=== PATIENT | male | born 1955 | race Caucasian/White ===

== ENCOUNTER 2018-06-08 14:49 | Emergency (ER) | payer MEDICARE, MEDICAID ==
[2018-06-08 16:00] LABS: BASO % 0.3 % (0.0-1.0); EOS # 0.1 10^3/uL (0.0-0.50); EOS % 0.7 % (0.0-3.0); HEMATOCRIT 43.7 % (42.0-52.0); HEMOGLOBIN 14.2 g/dl (13.5-17.5); IMMATURE GRANULOCYTE % 0.5 % (0-3.0); LYMPH # 3.4 10^3/uL (1.5-4.5); MEAN CORPUSCULAR HEMOGLOBIN 29.4 pg (27.0-33.0); MEAN CORPUSCULAR HGB CONC 32.5 g/dl (32.0-36.5); MEAN CORPUSCULAR VOLUME 90.5 fl (80.0-96.0); MONO # 0.9 10^3/uL (0.0-0.8); MONO % 7.1 % (0.0-5.0); NEUTROPHILS # 8.5 10^3/uL (1.8-7.7); NEUTROPHILS % 65.4 % (36.0-66.0); PLATELET COUNT, AUTOMATED 401 10^3/uL (150-450); RED BLOOD COUNT 4.83 10^6/uL (4.30-6.10); RED CELL DISTRIBUTION WIDTH 12.6 % (11.5-14.5); WHITE BLOOD COUNT 13.1 10^3/uL (4.0-10.0)
[2018-06-08] MEDS: NS 1,000 ML IV (16:00)
[2018-06-08 16:08] LABS: INR 0.97
[2018-06-08 16:09] LABS: PARTIAL THROMBOPLASTIN TIME 30.5 SECONDS (25.4-37.6)
[2018-06-08 16:13] LABS: ALBUMIN/GLOBULIN RATIO 1.33 (1.00-1.93); ALKALINE PHOSPHATASE 90 U/L (45-117); ALT/SGPT 29 U/L (12-78); AMYLASE 92 U/L (25-115); ANION GAP 6 MEQ/L (8-16); AST/SGOT 16 U/L (7-37); BILIRUBIN,DIRECT < 0.1 MG/DL (0.0-0.2); BILIRUBIN,TOTAL 0.4 MG/DL (0.2-1.0); BLOOD UREA NITROGEN 17 MG/DL (7-18); CALCIUM LEVEL 9.1 MG/DL (8.8-10.2); CARBON DIOXIDE LEVEL 27 MEQ/L (21-32); CHLORIDE LEVEL 103 MEQ/L (98-107); CREATININE FOR GFR 0.99 MG/DL (0.70-1.30); GLOMERULAR FILTRATION RATE > 60.0 (>49); GLUCOSE, FASTING 103 MG/DL (70-100); LIPASE 123 U/L (73-393); POTASSIUM SERUM 4.5 MEQ/L (3.5-5.1); SODIUM LEVEL 136 MEQ/L (136-145)
[2018-06-08] MEDS ORDERED: ISOVUE-370 76% 100ML VIAL (Q9967) As Ordered (16:19)
== END 2018-06-08 18:23 | disposition home or self-care (01) ==
LOC: M ED 14:49
DX: K92.1 Melena (principal); K57.30 Diverticulosis of large intestine without perforation or abscess without bleeding; N40.0 Benign prostatic hyperplasia without lower urinary tract symptoms; Z98.890 Other specified postprocedural states; K21.9 Gastro-esophageal reflux disease without esophagitis; Z72.0 Tobacco use; Z79.899 Other long term (current) drug therapy
CPT/HCPCS: Q9967

== ENCOUNTER 2018-07-29 06:43 | Day surgery (SDC) | payer MEDICARE ==
[~2018-07-29] VITALS: Ht 193 cm; Wt 109.8 kg
[~2018-07-29 06:43] MED LIST: ADVI200T PO; FISH7.5C PO; HYDR1CRE TOP; MULT1TAB8 PO; PERCOCET PO; VITA200T4 PO
[2018-07-29] MEDS ORDERED: NS 1,000 ML IV SCH (07:00)
[2018-07-29] MEDS ORDERED: PROPOFOL 200 MG/20 ML VIAL As Ordered ONE ×2 (07:13→07:46)
--- NOTE | 2018-07-29 08:06 | ROOR ---
Patient Name: Bentley Lu Procedure Date: 07/29/2018 7:23 AM Date of : 1955 Age: 62 Room: [facility] Gender: Male Note Status: Finalized Procedure: Colonoscopy Indications: Rectal bleeding Providers: Carson Darnell MD Referring MD: JOSEFINA SANTAMARIA JR, MD Requesting Provider: Medicines: Monitored Anesthesia Care Complications: No immediate complications. Procedure: Pre-Anesthesia Assessment: - Prior to the procedure, a History and Physical was performed, and patient medications and allergies were reviewed. The patient is competent. The risks and benefits of the procedure and the sedation options and risks were discussed with the patient. All questions were answered and informed consent was obtained. Patient identification and proposed procedure were verified by the physician, the nurse and the sole inker in the endoscopy suite. Mental Status Examination: alert and oriented. Airway Examination: normal oropharyngeal airway and neck mobility. Respiratory Examination: clear to auscultation. CV Examination: normal. Prophylactic Antibiotics: The patient does not require prophylactic antibiotics. Prior Anticoagulants: The patient has taken no previous anticoagulant or antiplatelet agents. ASA Grade Assessment: II - A patient with mild systemic disease. After reviewing the risks and benefits, the patient was deemed in satisfactory condition to undergo the procedure. The anesthesia plan was to use monitored anesthesia care (MAC). Immediately prior to administration of medications, the patient was re-assessed for adequacy to receive sedatives. The heart rate, respiratory rate, oxygen saturations, blood pressure, adequacy of pulmonary ventilation, and response to care were monitored throughout the procedure. The physical status of the patient was re-assessed after the procedure. The Colonoscope was introduced through the anus and advanced to the cecum, identified by appendiceal orifice and ileocecal valve. The colonoscopy was performed without difficulty. The patient tolerated the procedure well. The quality of the bowel preparation was good. Findings: The perianal and digital rectal examinations were normal. Multiple medium-mouthed diverticula were found in the sigmoid colon, descending colon and transverse colon. There was no evidence of diverticular bleeding. A diminutive polyp was found in the cecum. The polyp was flat. The polyp was removed with a cold snare. Resection and retrieval were complete. Estimated blood loss was minimal. The retroflexed view of the distal rectum and anal verge was normal and showed no anal or rectal abnormalities. Impression: - Mild diverticulosis in the sigmoid colon, in the descending colon and in the transverse colon. There was no evidence of diverticular bleeding. - One diminutive polyp in the cecum, removed with a cold snare. Resected and retrieved. - The distal rectum and anal verge are normal on retroflexion view. Recommendation: - Discharge patient to home (ambulatory). - High fiber diet. - Continue present medications. - Telephone my office for pathology results in 2 weeks. - Repeat colonoscopy in 10 years for screening purposes. Carson Darnell MD Carson Darnell MD 07/29/2018 8:05:58 AM This report has been signed electronically. Number of Addenda: 0 Note Initiated On: 07/29/2018 7:23 AM Estimated Blood Loss: Estimated blood loss was minimal.
[2018-07-29 08:20] VITALS: BP 150/90
== END 2018-07-29 08:31 | disposition home or self-care (01) ==
LOC: M OPP 06:43
PROVIDERS: ATTEND Surgery
DX: K57.30 Diverticulosis of large intestine without perforation or abscess without bleeding (principal); K63.5 Polyp of colon; J44.9 Chronic obstructive pulmonary disease, unspecified; M12.9 Arthropathy, unspecified; I10 Essential (primary) hypertension; G47.30 Sleep apnea, unspecified; Z79.899 Other long term (current) drug therapy

== ENCOUNTER 2020-09-01 21:32 | Emergency (ER) | payer MEDICARE ==
[~2020-09-01] VITALS: Ht 193 cm; Wt 102.0 kg
--- NOTE | 2020-09-01 22:14 | REPVR ---
PROCEDURE INFORMATION: Exam: XR Chest, 1 View Exam date and time: 09/01/2020 10:00 PM Age: 64 years old Clinical indication: Chest pain TECHNIQUE: Imaging protocol: XR of the chest Views: 1 view. COMPARISON: No relevant prior studies available. FINDINGS: Lungs: Coarse interstitium, greatest in the bases with interstitial prominence or edema with bibasilar Lesa B lines. There is minimal lateral basal infiltrate or atelectasis, left greater than right. Pleural space: Unremarkable. No pleural effusion. No pneumothorax. Heart/Mediastinum: Unremarkable. No cardiomegaly. Bones/joints: Unremarkable. IMPRESSION: Interstitial coarsening with interstitial edema, greatest in the bases with minimal lateral basal infiltrates or atelectasis, left greater than right which may reflect early pulmonary venous congestion. Pneumonia is not excluded. Electronically signed by: Santana Cosby On 09/01/2020 22:13:22 PM
[2020-09-01 22:24] LABS: BASO % 0.3 % (0.0-1.0); EOS # 0.1 10^3/uL (0.0-0.5); EOS % 0.8 % (0.0-3.0); HEMATOCRIT 42.9 % (42.0-52.0); HEMOGLOBIN 13.8 g/dl (13.5-17.5); LYMPH # 2.1 10^3/uL (1.5-5.0); LYMPH % 23.3 % (24.0-44.0); MEAN CORPUSCULAR HEMOGLOBIN 29.3 pg (27.0-33.0); MEAN CORPUSCULAR HGB CONC 32.2 g/dl (32.0-36.5); MEAN CORPUSCULAR VOLUME 91.1 fl (80.0-96.0); MONO # 0.6 10^3/uL (0.0-0.8); MONO % 6.3 % (0.0-5.0); NEUTROPHILS # 6.2 10^3/uL (1.5-8.5); PLATELET COUNT, AUTOMATED 320 10^3/uL (150-450); RED BLOOD COUNT 4.71 10^6/uL (4.30-6.10)
[2020-09-01] MEDS ORDERED: NITROGLYCERIN 0.4 MG SUBL TABLET SL PRN (22:30)
[2020-09-01 23:00] LABS: ALBUMIN 3.8 GM/DL (3.2-5.2); ALT/SGPT 20 U/L (12-78); BILIRUBIN,DIRECT 0.1 MG/DL (0.0-0.2); BILIRUBIN,TOTAL 0.2 MG/DL (0.2-1.0); LIPASE 104 U/L (73-393); NT-PRO BNP 1473 PG/ML (<125); TOTAL PROTEIN 6.7 GM/DL (6.4-8.2)
[2020-09-01] MEDS ORDERED: HEPARIN DRIP 25,000 UNITS in IV 1 EA IV SCH (23:30)
[2020-09-01] MEDS ORDERED: HEPARIN SOD (PORCINE) 5000UNITS/ML 1ML VIAL/SYRINGE IV ONE (23:30)
[2020-09-01] MEDS ORDERED: CLOPIDOGREL 300 MG TAB (PLAVIX) PO STA (23:30)
[2020-09-01] MEDS ORDERED: ASPIRIN 81 MG CHEW TABLET PO ONE (23:30)
[2020-09-02 00:01] LABS: BLOOD UREA NITROGEN 19 MG/DL (7-18); CALCIUM LEVEL 8.6 MG/DL (8.8-10.2); CARBON DIOXIDE LEVEL 25 MEQ/L (21-32); CHLORIDE LEVEL 107 MEQ/L (98-107); CK-MB VALUE MASS 3.3 NG/ML (<3.6); CPK CREATINE PHOSPHOKINASE 97 U/L (39-308); CREATININE FOR GFR 0.75 MG/DL (0.70-1.30); GLOMERULAR FILTRATION RATE > 60.0 (>49); GLUCOSE, FASTING 118 MG/DL (70-100); POTASSIUM SERUM 4.1 MEQ/L (3.5-5.1); SODIUM LEVEL 141 MEQ/L (136-145); TROPONIN I 0.08 NG/ML (< 0.10)
[2020-09-02 00:17] VITALS: BP 179/100
[2020-09-02 00:43] LABS: RSV AMPLIFICATION NEGATIVE (NEGATIVE)
[2020-09-02 00:45] VITALS: BP 171/99
--- NOTE | 2020-09-02 08:06 | ECGEPIP ---
[facility] - ED Test Date: 2020-09-01 Pat Name: VARINDER CASTELAN Department: Room: - Gender: Male [place]: FRED : 1955 Requested By: Viri Woodard Order Number: [id number] Reading MD: Braydon Zavaleta Measurements Intervals [place] Rate: 81 P: 33 MI: 201 QRS: -37 QRSD: 96 T: 116 QT: 381 QTc: 443 Interpretive Statements SINUS RHYTHM LEFT ATRIAL ENLARGEMENT LEFT AXIS DEVIATION POSSIBLE LEFT VENTRICULAR HYPERTROPHY POSSIBLE ANTEROSEPTAL MYOCARDIAL INFARCTION, OF INDETERMINATE AGE Electronically Signed on 09-02-2020 8:05:53 EST by Braydon Zavaleta
== END 2020-09-02 01:01 | disposition short-term general hospital (02) ==
LOC: M ED 21:32
DX: I24.9 Acute ischemic heart disease, unspecified (principal); G47.30 Sleep apnea, unspecified; F17.210 Nicotine dependence, cigarettes, uncomplicated
CPT/HCPCS: 71045; 80047; 80048; 80076; 82550; 82553; 83690; 83880; 84443; 84484; 85025; 87631; 93005; 93041; 94760; 96374; 99285; J1644

== ENCOUNTER 2021-10-30 20:16 | Emergency (ER) | payer MEDICARE ==
[~2021-10-30] VITALS: Ht 193 cm; Wt 111.4 kg
[2021-10-30] MEDS ORDERED: METO50TA7 PO (20:54)
[2021-10-30] MEDS ORDERED: ATOR80TA59 PO (20:54)
[2021-10-30] MEDS ORDERED: LISI30TA4 PO (20:54)
[2021-10-30] MEDS ORDERED: CLOP75TA2 PO (20:54)
[2021-10-30] MEDS ORDERED: FAMO20TA5 PO (20:54)
[2021-10-30] MEDS ORDERED: NS 1,000 ML IV SCH (20:55)
[2021-10-30 21:14] LABS: BASO % 0.4 % (0.0-1.0); EOS # 0.1 10^3/uL (0.0-0.5); HEMATOCRIT 42.3 % (42.0-52.0); HEMOGLOBIN 13.6 g/dl (13.5-17.5); LYMPH # 2.7 10^3/uL (1.5-5.0); LYMPH % 24.8 % (24.0-44.0); MEAN CORPUSCULAR HEMOGLOBIN 29.2 pg (27.0-33.0); MEAN CORPUSCULAR HGB CONC 32.2 g/dl (32.0-36.5); MEAN CORPUSCULAR VOLUME 90.8 fl (80.0-96.0); MONO # 0.8 10^3/uL (0.0-0.8); MONO % 7.2 % (2.0-8.0); NEUTROPHILS # 7.3 10^3/uL (1.5-8.5); PLATELET COUNT, AUTOMATED 334 10^3/uL (150-450); RED BLOOD COUNT 4.66 10^6/uL (4.30-6.10)
[2021-10-30 21:23] LABS: ALBUMIN 3.8 GM/DL (3.2-5.2); ALT/SGPT 32 U/L (12-78); BILIRUBIN,DIRECT 0.1 MG/DL (0.0-0.2); BILIRUBIN,TOTAL 0.3 MG/DL (0.2-1.0); BLOOD UREA NITROGEN 17 MG/DL (7-18); CALCIUM LEVEL 8.9 MG/DL (8.8-10.2); CARBON DIOXIDE LEVEL 27 MEQ/L (21-32); CHLORIDE LEVEL 107 MEQ/L (98-107); CREATININE FOR GFR 0.59 MG/DL (0.70-1.30); GLOMERULAR FILTRATION RATE > 60.0 (>49); GLUCOSE, FASTING 91 MG/DL (70-100); LIPASE 139 U/L (73-393); NT-PRO BNP 162 PG/ML (<125); POTASSIUM SERUM 4.2 MEQ/L (3.5-5.1); SODIUM LEVEL 137 MEQ/L (136-145); TOTAL PROTEIN 6.4 GM/DL (6.4-8.2)
[2021-10-30 21:49] LABS: CK-MB VALUE MASS 2.9 NG/ML (<3.6); MB/CK RELATIVE INDEX 2.52 (< OR =4)
[2021-10-30 22:08] LABS: INR 0.9; PROTHROMBIN TIME 12.5 SECONDS (12.7-14.5)
[2021-10-30 22:45] VITALS: BP 133/62
== END 2021-10-30 23:11 | disposition home or self-care (01) ==
LOC: M ED 20:16 → EDSEX 20:16 → EDBD 20:16 → M ED 23:11
DX: R25.1 Tremor, unspecified (principal); R53.1 Weakness; G20 Parkinson's disease; I10 Essential (primary) hypertension; I25.10 Atherosclerotic heart disease of native coronary artery without angina pectoris; K21.9 Gastro-esophageal reflux disease without esophagitis; Z79.899 Other long term (current) drug therapy; Z79.01 Long term (current) use of anticoagulants; F17.210 Nicotine dependence, cigarettes, uncomplicated

== ENCOUNTER 2023-06-15 08:24 | Emergency (ER) | payer MEDICARE ==
[~2023-06-15] VITALS: Ht 190.5 cm; Wt 105.3 kg
[~2023-06-15 08:24] MED LIST changes: +ATOR80TA59 PO; +CLOP75TA2 PO; +FAMO20TA5 PO; +FISH10005 PO; -FISH7.5C PO; +LISI30TA4 PO; +METO50TA7 PO
[2023-06-15] MEDS ORDERED: EZET10TA21 (08:36)
[2023-06-15] MEDS ORDERED: LISI40TA4 (08:36)
[2023-06-15] MEDS ORDERED: AMLO1TAB25 (08:36)
[2023-06-15] MEDS ORDERED: LIDOCAINE 5% (LIDODERM) PATCH TD ONE (09:40)
[2023-06-15] MEDS: KETOROLAC 60MG 2ML VIAL IM ONE ×2 (09:40→09:56)
[2023-06-15] MEDS ORDERED: IBUP200C25 PO (09:58)
[2023-06-15] MEDS ORDERED: ACETAMINOPHEN 500 MG TAB PO ONE (10:35)
[2023-06-15] MEDS ORDERED: MEDR4PAK PO (11:50)
[2023-06-15] MEDS ORDERED: TRAM50TA2 PO (11:50)
[2023-06-15] MEDS ORDERED: METH-1165 PO (11:50)
[2023-06-15] MEDS ORDERED: ASPE4PAD TOP (11:50)
[2023-06-15 12:01] VITALS: BP 124/67; TEMP 97.9; O2SAT 97
== END 2023-06-15 12:11 | disposition home or self-care (01) ==
LOC: M ED 08:24
DX: M54.17 Radiculopathy, lumbosacral region (principal); M47.897 Other spondylosis, lumbosacral region; I10 Essential (primary) hypertension; E78.5 Hyperlipidemia, unspecified; I25.2 Old myocardial infarction; J44.9 Chronic obstructive pulmonary disease, unspecified; G47.33 Obstructive sleep apnea (adult) (pediatric); F17.290 Nicotine dependence, other tobacco product, uncomplicated; Z79.899 Other long term (current) drug therapy

== ENCOUNTER 2023-09-20 12:44 | Emergency (ER) | payer MEDICARE ==
[~2023-09-20] VITALS: Ht 190.5 cm; Wt 107.3 kg
[~2023-09-20 12:44] MED LIST changes: +AMLO1TAB25 PO; +ASPE4PAD TOP; +EZET10TA21 PO; +IBUP200C25 PO; +LISI40TA4 PO; +MEDR4PAK PO; +METH-1165 PO; +TRAM50TA2 PO
[2023-09-20] MEDS ORDERED: GABA-282 PO (13:03)
[2023-09-20 14:18] LABS: BASO % 0.2 % (0.0-1.0); EOS # 0.1 10^3/uL (0.0-0.5); EOS % 0.6 % (0.0-3.0); HEMATOCRIT 40.5 % (42.0-52.0); HEMOGLOBIN 13.2 g/dl (13.5-17.5); LYMPH # 2.5 10^3/uL (1.5-5.0); LYMPH % 24.2 % (24.0-44.0); MEAN CORPUSCULAR HEMOGLOBIN 30.3 pg (27.0-33.0); MEAN CORPUSCULAR HGB CONC 32.6 g/dl (32.0-36.5); MEAN CORPUSCULAR VOLUME 93.1 fl (80.0-96.0); MONO # 0.5 10^3/uL (0.0-0.8); MONO % 5.1 % (2.0-8.0); NEUTROPHILS % 69.6 % (36.0-66.0); PLATELET COUNT, AUTOMATED 353 10^3/uL (150-450); RED BLOOD COUNT 4.35 10^6/uL (4.30-6.10); WHITE BLOOD COUNT 10.1 10^3/uL (4.0-10.0)
[2023-09-20 14:30] LABS: INR 1.04; PROTHROMBIN TIME 13.3 SECONDS (12.5-14.5)
[2023-09-20 14:31] LABS: PARTIAL THROMBOPLASTIN TIME 30.9 SECONDS (24.8-34.2)
[2023-09-20 14:33] LABS: D-DIMER QUANT 0.63 ug/mL (<0.5)
[2023-09-20] MEDS: NS 1,000 ML IV ONE (14:35)
[2023-09-20 14:40] LABS: C REACTIVE PROTEIN QUANTITATIV < 0.40 MG/DL (<1.0)
[2023-09-20 14:42] LABS: ALBUMIN 3.8 G/DL (3.2-5.2); ALKALINE PHOSPHATASE 85 U/L (46-116); ALT/SGPT 17 U/L (7.0-40); AST/SGOT 10 U/L (<34); BILIRUBIN,DIRECT 0.3 MG/DL (<0.4); BILIRUBIN,TOTAL 0.8 MG/DL (0.3-1.2); BLOOD UREA NITROGEN 11 MG/DL (9-23); CALCIUM LEVEL 8.9 MG/DL (8.3-10.6); CARBON DIOXIDE LEVEL 25 MMOL/L (20-31); CHLORIDE LEVEL 107 MMOL/L (98-107); CK-MB VALUE MASS < 1.0 NG/ML (<3.6); CREATININE FOR GFR 0.56 MG/DL (0.70-1.30); GLOMERULAR FILTRATION RATE > 60.0 (>49); GLUCOSE, FASTING 95 MG/DL (74-106); SODIUM LEVEL 139 MMOL/L (136-145); TOTAL PROTEIN 6.5 G/DL (5.7-8.2)
[2023-09-20 14:43] LABS: FREE T4 1.12 NG/DL (0.89-1.76)
[2023-09-20 14:46] LABS: RSV AMPLIFICATION NEGATIVE (NEGATIVE)
[2023-09-20 14:53] LABS: CPK CREATINE PHOSPHOKINASE 88 U/L (46-171); MB/CK RELATIVE INDEX 1.13 (< OR =4)
[2023-09-20] MEDS ORDERED: ISOVUE-370 76% 100ML VIAL As Ordered ONE (15:01)
[2023-09-20] MEDS ORDERED: VITA200031 PO (15:37)
[2023-09-20] MEDS ORDERED: OMEG1CAP PO (15:37)
[2023-09-20] MEDS ORDERED: VITA500C24 PO (15:37)
[2023-09-20] MEDS ORDERED: THERTAB21 PO (15:37)
[2023-09-20] MEDS ORDERED: ASCO250T20 PO (15:38)
[2023-09-20] MEDS ORDERED: HOME MED LIST COMPLETE! XX SCH (15:40)
[2023-09-20] MEDS ORDERED: ELIQ5TAB PO (16:39)
[2023-09-20] MEDS ORDERED: HOLTER MONITOR XX (16:40)
[2023-09-20] MEDS: APIXABAN 5 MG TAB (ELIQUIS) PO ONE (17:00)
[2023-09-20 17:08] VITALS: BP 133/77; TEMP 97.8; O2SAT 96
== END 2023-09-20 17:29 | disposition home or self-care (01) ==
LOC: M ED 12:44
DX: I48.91 Unspecified atrial fibrillation (principal); I25.42 Coronary artery dissection; I10 Essential (primary) hypertension; F10.10 Alcohol abuse, uncomplicated; Z79.899 Other long term (current) drug therapy; Z79.810 Long term (current) use of selective estrogen receptor modulators (SERMs)
CPT/HCPCS: 71045; 71275; 80048; 80076; 82550; 82553; 83880; 84439; 84443; 84484; 85025; 85379; 85610; 85730; 86140; 87631; 93005; 93041; 94760; 96360; 96361; 99285; Q9967

== ENCOUNTER → 2023-09-22 | Outpatient (CLI) | payer MEDICARE ==
[~2023-09-22] MED LIST changes: +ASCO250T20 PO; +ELIQ5TAB PO; +GABA-282 PO; +HOLTER MONITOR XX; +OMEG1CAP PO; +THERTAB21 PO; +VITA200031 PO; +VITA500C24 PO
== END ==
LOC: M EKG 12:24
PROVIDERS: ATTEND Hospitalist
DX: R00.2 Palpitations (principal); Z53.9 Procedure and treatment not carried out, unspecified reason

== ENCOUNTER → 2023-12-09 | Outpatient (CLI) | payer MEDICARE | LOC: M WUC 12:21 | PROVIDERS: ATTEND Student in an Organized Health Care Education/Training Program | DX: J06.9 Acute upper respiratory infection, unspecified (principal); R05.9 Cough, unspecified; J98.11 Atelectasis ==

== ENCOUNTER → 2024-06-28 | Outpatient (REF) | payer MEDICARE ==
[~2024-06-28] MED LIST changes: +GABA-1172 PO; -GABA-282 PO
== END ==
LOC: M LAB REF 07:53
PROVIDERS: ATTEND Surgery
DX: L72.12 Trichodermal cyst (principal)

== ENCOUNTER → 2024-07-15 | Outpatient (CLI) | payer MEDICARE | LOC: M RAD 15:23 | PROVIDERS: ATTEND Internal Medicine | DX: Z12.2 Encounter for screening for malignant neoplasm of respiratory organs (principal); F17.210 Nicotine dependence, cigarettes, uncomplicated ==

== ENCOUNTER 2025-02-11 07:47 | Emergency (ER) | payer MEDICARE ==
[~2025-02-11] VITALS: Ht 190.5 cm; Wt 104.2 kg
[~2025-02-11 07:47] MED LIST changes: +LISI40TA10 PO; -LISI40TA4 PO
[2025-02-11] MEDS ORDERED: OXYB5TAB14 PO (08:06)
[2025-02-11] MEDS ORDERED: FINA5TAB2 PO (08:06)
[2025-02-11] MEDS ORDERED: METO75TA (08:06)
[2025-02-11] MEDS ORDERED: TAMS1CAP17 PO (08:06)
[2025-02-11 08:56] LABS: KETONE, URINE AUTO RFX NEGATIVE (NEGATIVE); RBC, URINE AUTO RFX TNTC /HPF (0-3); SQUAM EPITHELIAL CELL UR AURFX 0 /HPF (0-6)
[2025-02-11 09:18] LABS: LEUKOCYTE ESTERASE UR AUTO RFX 3+ (NEGATIVE); NITRITE, URINE AUTO RFX POSITIVE (NEGATIVE); WBC, URINE AUTO RFX TNTC /HPF (0-3)
[2025-02-11 09:29] LABS: CALCIUM LEVEL 8.2 MG/DL (8.3-10.6); CARBON DIOXIDE LEVEL 28 MMOL/L (20-31); CHLORIDE LEVEL 102 MMOL/L (98-107); CREATININE FOR GFR 0.88 MG/DL (0.70-1.30); GLOMERULAR FILTRATION RATE > 90.0 (>49); POTASSIUM SERUM 3.4 MMOL/L (3.5-5.1); SODIUM LEVEL 141 MMOL/L (136-145)
[2025-02-11 09:31] LABS: BASO # 0.0 10^3/uL (0.0-0.2); BASO % 0.2 % (0.0-1.0); EOS # 0.0 10^3/uL (0.0-0.5); EOS % 0.1 % (0.0-3.0); LYMPH # 0.8 10^3/uL (1.5-5.0); LYMPH % 4.5 % (24.0-44.0); MONO # 1.0 10^3/uL (0.0-0.8); MONO % 5.8 % (2.0-8.0); NEUTROPHILS # 15.9 10^3/uL (1.5-8.5); NEUTROPHILS % 89.0 % (36.0-66.0); PLATELET COUNT, AUTOMATED 266 10^3/uL (150-450)
[2025-02-11] MEDS ORDERED: CIPR500T39 PO (09:48)
[2025-02-11 10:44] VITALS: BP 110/73; TEMP 98.3; O2SAT 99
[2025-02-12] MEDS ORDERED: ACET-907 PO (12:41)
[2025-02-12] MEDS ORDERED: METO100T5 PO (12:41)
[2025-02-12] MEDS ORDERED: ELIQ5TAB PO (12:41)
[2025-02-12] MEDS ORDERED: CIPR-249 PO (12:43)
== END 2025-02-11 10:46 | disposition home or self-care (01) ==
LOC: M ED 07:47
DX: N39.0 Urinary tract infection, site not specified (principal); I25.10 Atherosclerotic heart disease of native coronary artery without angina pectoris; I25.2 Old myocardial infarction; J44.9 Chronic obstructive pulmonary disease, unspecified; G47.30 Sleep apnea, unspecified; Z95.5 Presence of coronary angioplasty implant and graft; F17.200 Nicotine dependence, unspecified, uncomplicated; Z96.0 Presence of urogenital implants; Z79.899 Other long term (current) drug therapy

== ENCOUNTER 2025-02-12 10:23 | Inpatient (IN) | payer MEDICARE ==
[~2025-02-12] VITALS: Ht 190.5 cm; Wt 101.0 kg
[2025-02-12] MEDS: MIRALAX *UNIT DOSE* 17 GM PACKET PO SCH (09:00)
[~2025-02-12 10:23] MED LIST changes: +CIPR500T39 PO; +FINA5TAB2 PO; +METO75TA; +OXYB5TAB14 PO; +TAMS1CAP17 PO
[2025-02-12 11:38] LABS: BASO # 0.0 10^3/uL (0.0-0.2); BASO % 0.2 % (0.0-1.0); EOS # 0.0 10^3/uL (0.0-0.5); EOS % 0.1 % (0.0-3.0); LYMPH # 1.4 10^3/uL (1.5-5.0); LYMPH % 7.5 % (24.0-44.0); MONO # 1.4 10^3/uL (0.0-0.8); MONO % 7.2 % (2.0-8.0); NEUTROPHILS # 16.1 10^3/uL (1.5-8.5); NEUTROPHILS % 84.5 % (36.0-66.0); PLATELET COUNT, AUTOMATED 233 10^3/uL (150-450)
[2025-02-12 12:37] LABS: CALCIUM LEVEL 8.2 MG/DL (8.3-10.6); CARBON DIOXIDE LEVEL 28.0 MMOL/L (20-31); CHLORIDE LEVEL 100.0 MMOL/L (98-107); CREATININE FOR GFR 1.1 MG/DL (0.70-1.30); GLOMERULAR FILTRATION RATE 72.7 (>49); POTASSIUM SERUM 3.6 MMOL/L (3.5-5.1); SODIUM LEVEL 140.0 MMOL/L (136-145)
[2025-02-12] MEDS ORDERED: ACET-907 PO (12:41)
[2025-02-12] MEDS ORDERED: ELIQ5TAB PO (12:41)
[2025-02-12] MEDS ORDERED: METO100T5 PO (12:41)
[2025-02-12] MEDS ORDERED: CIPR-249 PO (12:43)
[2025-02-12] MEDS ORDERED: HOME MED LIST COMPLETE! XX SCH (12:45)
[2025-02-12] MEDS: CEFEPIME HCL 1 GM in DEXTROSE 5% (D5W) ADV/MINI-BAG 50 ML IV ONE (13:24)
[2025-02-12 16:38] VITALS: BP 130/73; TEMP 97.9; O2SAT 96
[2025-02-12] MEDS ORDERED: BISACODYL 10 MG SUPP PR PRN (16:55)
[2025-02-12] MEDS: NS (Normal Saline) 0.9% 1,000 ML IV ONE (17:01)
[2025-02-12] MEDS: CEFEPIME HCL 2 GM in DEXTROSE 5% (D5W) ADV/MINI-BAG 50 ML IV SCH (17:46)
[2025-02-12] MEDS: NS (Normal Saline) 0.9% 1,000 ML IV SCH (17:53)
[2025-02-12 20:26] VITALS: BP 106/66; TEMP 97.9; O2SAT 93
[2025-02-12] MEDS: ATORVASTATIN 20 MG TAB PO SCH (20:32)
[2025-02-12] MEDS: EZETIMIBE 10 MG TABLET PO SCH (20:33)
[2025-02-12] MEDS: SENNOSIDES/DOCUSATE SODIUM 8.6 MG/50MG TAB PO SCH (20:33)
[2025-02-12] MEDS: APIXABAN 5 MG TAB PO SCH (20:33)
[2025-02-12] MEDS: FAMOTIDINE 20 MG TAB PO SCH (20:33)
[2025-02-12] MEDS: METOPROLOL TARTRATE 100 MG TAB PO SCH (20:34)
[2025-02-12] MEDS ORDERED: CEFEPIME HCL 1 GM in DEXTROSE 5% (D5W) ADV/MINI-BAG 50 ML IV SCH (21:00)
[2025-02-12 22:44] VITALS: O2SAT 93
[2025-02-12 22:57] LABS: KETONE, URINE AUTO RFX NEGATIVE (NEGATIVE); NITRITE, URINE AUTO RFX NEGATIVE (NEGATIVE); RBC, URINE AUTO RFX 2 /HPF (0-3); SQUAM EPITHELIAL CELL UR AURFX 0 /HPF (0-6)
[2025-02-12 23:08] LABS: LEUKOCYTE ESTERASE UR AUTO RFX 2+ (NEGATIVE); WBC, URINE AUTO RFX 14 /HPF (0-3)
[2025-02-13 05:49] LABS: BASO # 0.0 10^3/uL (0.0-0.2); BASO % 0.2 % (0.0-1.0); EOS # 0.0 10^3/uL (0.0-0.5); EOS % 0.3 % (0.0-3.0); LYMPH # 1.6 10^3/uL (1.5-5.0); LYMPH % 11.5 % (24.0-44.0); MONO # 1.0 10^3/uL (0.0-0.8); MONO % 7.3 % (2.0-8.0); NEUTROPHILS # 10.9 10^3/uL (1.5-8.5); NEUTROPHILS % 80.1 % (36.0-66.0); PLATELET COUNT, AUTOMATED 259 10^3/uL (150-450)
[2025-02-13 06:15] VITALS: BP 133/85; TEMP 98.1; O2SAT 93
[2025-02-13 06:16] LABS: CALCIUM LEVEL 8.2 MG/DL (8.3-10.6); CARBON DIOXIDE LEVEL 27 MMOL/L (20-31); CHLORIDE LEVEL 105 MMOL/L (98-107); CREATININE FOR GFR 0.85 MG/DL (0.70-1.30); GLOMERULAR FILTRATION RATE > 90.0 (>49); POTASSIUM SERUM 3.0 MMOL/L (3.5-5.1); SODIUM LEVEL 141 MMOL/L (136-145)
[2025-02-13] MEDS: TAMSULOSIN 0.4 MG CAP PO SCH (08:17)
[2025-02-13] MEDS: FINASTERIDE 5 MG TAB PO SCH (08:17)
[2025-02-13] MEDS: POTASSIUM CHLORIDE 10MEQ SR TABLET PO ONE (08:18)
[2025-02-13] MEDS: GABAPENTIN 300 MG CAP PO SCH (08:18)
[2025-02-13 12:00] VITALS: BP 128/78; TEMP 98.1; O2SAT 94
[2025-02-13 20:07] VITALS: BP 115/71; TEMP 98.1; O2SAT 95
[2025-02-14 03:55] VITALS: BP 128/80; TEMP 97.7; O2SAT 95
[2025-02-14 06:33] LABS: BASO # 0.0 10^3/uL (0.0-0.2); BASO % 0.2 % (0.0-1.0); EOS # 0.0 10^3/uL (0.0-0.5); EOS % 0.4 % (0.0-3.0); LYMPH # 1.6 10^3/uL (1.5-5.0); LYMPH % 16.3 % (24.0-44.0); MONO # 0.9 10^3/uL (0.0-0.8); MONO % 9.1 % (2.0-8.0); NEUTROPHILS # 7.0 10^3/uL (1.5-8.5); NEUTROPHILS % 73.6 % (36.0-66.0); PLATELET COUNT, AUTOMATED 260 10^3/uL (150-450)
[2025-02-14 07:02] LABS: CALCIUM LEVEL 8.6 MG/DL (8.3-10.6); CARBON DIOXIDE LEVEL 26 MMOL/L (20-31); CHLORIDE LEVEL 107 MMOL/L (98-107); CREATININE FOR GFR 0.79 MG/DL (0.70-1.30); GLOMERULAR FILTRATION RATE > 90.0 (>49); POTASSIUM SERUM 3.5 MMOL/L (3.5-5.1); SODIUM LEVEL 147 MMOL/L (136-145)
[2025-02-14] MEDS ORDERED: DOCU8.6T PO (08:26)
[2025-02-14 09:42] VITALS: BP 146/87
== END 2025-02-14 12:01 | disposition home or self-care (01) | DRG 690 ==
LOC: M ED 10:23 → M ED INP 15:18 → M MSPAV 16:36
PROVIDERS: ADMIT Internal Medicine Nephrology; ATTEND Internal Medicine Nephrology
DX: N39.0 Urinary tract infection, site not specified (principal); R78.81 Bacteremia; N13.30 Unspecified hydronephrosis; N40.1 Benign prostatic hyperplasia with lower urinary tract symptoms; I48.91 Unspecified atrial fibrillation; I10 Essential (primary) hypertension; E78.5 Hyperlipidemia, unspecified; I25.10 Atherosclerotic heart disease of native coronary artery without angina pectoris; I25.2 Old myocardial infarction; B96.89 Other specified bacterial agents as the cause of diseases classified elsewhere; K59.00 Constipation, unspecified; J44.9 Chronic obstructive pulmonary disease, unspecified; G47.30 Sleep apnea, unspecified; G89.29 Other chronic pain; M54.30 Sciatica, unspecified side; K57.90 Diverticulosis of intestine, part unspecified, without perforation or abscess without bleeding; F17.200 Nicotine dependence, unspecified, uncomplicated; Z95.5 Presence of coronary angioplasty implant and graft; Z79.01 Long term (current) use of anticoagulants; Z79.899 Other long term (current) drug therapy

== ENCOUNTER → 2025-03-08 | Outpatient (REF) | payer MEDICARE ==
[~2025-03-08] MED LIST changes: +ACET-907 PO; +CIPR-249 PO; +DOCU8.6T PO; +METO100T5 PO
[2025-03-08 18:07] LABS: APPEARANCE, URINE CLEAR (CLEAR); BACTERIA, URINE AUTO NEGATIVE (NEGATIVE); BILIRUBIN, URINE AUTO NEGATIVE (NEGATIVE); BLOOD, URINE BLOOD NEGATIVE (NEGATIVE); GLUCOSE, URINE (UA) AUTO NEGATIVE (NEGATIVE); KETONE, URINE AUTO NEGATIVE (NEGATIVE); LEUKOCYTE ESTERASE, URINE AUTO NEGATIVE (NEGATIVE); MUCUS, URINE SMALL (NEGATIVE); NITRITE, URINE AUTO NEGATIVE (NEGATIVE); PROTEIN, URINE AUTO NEGATIVE (NEGATIVE); RBC, URINE AUTO 0 /HPF (0-3); SPECIFIC GRAVITY URINE AUTO 1.005 (1.002-1.035); SQUAMOUS EPITHELIAL CELL UR AU 0 /HPF (0-6); UROBILINOGEN, URINE AUTO 0.2 mg/dL (0.0-2.0); WBC, URINE AUTO 0 /HPF (0-3)
== END ==
LOC: M SMT 16:46
PROVIDERS: ATTEND Urology
DX: Z87.440 Personal history of urinary (tract) infections (principal); Z79.899 Other long term (current) drug therapy

== ENCOUNTER → 2025-03-10 | Outpatient (REF) | payer MEDICARE | LOC: M LAB REF 12:08 | PROVIDERS: ATTEND Internal Medicine | DX: N40.0 Benign prostatic hyperplasia without lower urinary tract symptoms (principal) ==

== ENCOUNTER → 2025-04-04 | Outpatient (REF) | payer MEDICARE ==
[2025-04-04 14:46] LABS: INR 1.43
== END ==
LOC: M LAB REF 14:15
PROVIDERS: ATTEND Internal Medicine
DX: N40.0 Benign prostatic hyperplasia without lower urinary tract symptoms (principal); Z87.440 Personal history of urinary (tract) infections; Z79.01 Long term (current) use of anticoagulants

== ENCOUNTER → 2025-05-09 | Outpatient (CLI) | payer MEDICARE ==
[~2025-05-09] MED LIST changes: -EZET10TA21 PO; +EZET10TA57 PO; +LEVO1TAB38 PO; +METO1TAB87 PO; +METO75TA PO; +PROBCAP2 PO
[2025-05-09 15:07] LABS: PLATELET COUNT, AUTOMATED 484 10^3/uL (150-450)
[2025-05-09 15:12] LABS: ALT/SGPT 23.0 U/L (7.0-40); AST/SGOT 20.0 U/L (<34); CALCIUM LEVEL 9.0 MG/DL (8.3-10.6); CARBON DIOXIDE LEVEL 24.0 MMOL/L (20-31); CHLORIDE LEVEL 103.0 MMOL/L (98-107); CREATININE FOR GFR 1.73 MG/DL (0.70-1.30); GLOMERULAR FILTRATION RATE 42.2 (>49); POTASSIUM SERUM 4.7 MMOL/L (3.5-5.1); SODIUM LEVEL 134.0 MMOL/L (136-145)
== END ==
LOC: M PLALAB 10:12
PROVIDERS: ATTEND Urology
DX: N17.9 Acute kidney failure, unspecified (principal)

== ENCOUNTER → 2025-05-10 | Outpatient (CLI) | payer MEDICARE ==
[~2025-05-10] MED LIST changes: +ISOVUE-370 76% 100 ML VIAL ONE
== END ==
LOC: M PLAIMG 09:28
PROVIDERS: ATTEND Urology
DX: C67.8 Malignant neoplasm of overlapping sites of bladder (principal); N17.9 Acute kidney failure, unspecified
CPT/HCPCS: 71260; 74177; Q9967

== ENCOUNTER → 2025-05-17 | Outpatient (CLI) | payer MEDICARE ==
[~2025-05-17] MED LIST changes: -ISOVUE-370 76% 100 ML VIAL ONE
[2025-05-17 13:55] VITALS: TEMP 97.8
[2025-05-17 14:08] LABS: PLATELET COUNT, AUTOMATED 376 10^3/uL (150-450)
[2025-05-17] MEDS: NS (Normal Saline) 0.9% 1,000 ML IV SCH (14:54)
[2025-05-17] MEDS: MIDAZOLAM INJ 2 MG/2 ML VIAL IV PRN (14:54)
[2025-05-17] MEDS: ceFAZolin SODIUM 2 GM in DEXTROSE 5% (D5W) ADV/MINI-BAG 50 ML IV ONE (14:54)
[2025-05-17] MEDS: LIDOCAINE 1% MDV 20 ML VIAL SC SCH (15:34)
[2025-05-17 16:25] VITALS: BP 121/72; O2SAT 96
[2025-05-17 16:54] LABS: APPEARANCE, URINE CLEAR (CLEAR); BACTERIA, URINE AUTO NEGATIVE (NEGATIVE); BILIRUBIN, URINE AUTO NEGATIVE (NEGATIVE); BLOOD, URINE BLOOD 3+ (NEGATIVE); GLUCOSE, URINE (UA) AUTO NEGATIVE (NEGATIVE); KETONE, URINE AUTO NEGATIVE (NEGATIVE); LEUKOCYTE ESTERASE, URINE AUTO 3+ (NEGATIVE); NITRITE, URINE AUTO NEGATIVE (NEGATIVE); PROTEIN, URINE AUTO 1+ mg/dL (NEGATIVE); RBC, URINE AUTO 83 /HPF (0-3); SPECIFIC GRAVITY URINE AUTO 1.010 (1.002-1.035); SQUAMOUS EPITHELIAL CELL UR AU 0 /HPF (0-6); UROBILINOGEN, URINE AUTO 0.2 mg/dL (0.0-2.0); WBC, URINE AUTO 42 /HPF (0-3)
[2025-05-17 16:57] LABS: APPEARANCE, URINE CLEAR (CLEAR); BACTERIA, URINE AUTO NEGATIVE (NEGATIVE); BILIRUBIN, URINE AUTO NEGATIVE (NEGATIVE); BLOOD, URINE BLOOD 2+ (NEGATIVE); GLUCOSE, URINE (UA) AUTO NEGATIVE (NEGATIVE); KETONE, URINE AUTO NEGATIVE (NEGATIVE); LEUKOCYTE ESTERASE, URINE AUTO 2+ (NEGATIVE); NITRITE, URINE AUTO NEGATIVE (NEGATIVE); PROTEIN, URINE AUTO 1+ mg/dL (NEGATIVE); RBC, URINE AUTO 64 /HPF (0-3); SPECIFIC GRAVITY URINE AUTO 1.011 (1.002-1.035); SQUAMOUS EPITHELIAL CELL UR AU 0 /HPF (0-6); UROBILINOGEN, URINE AUTO 0.2 mg/dL (0.0-2.0); WBC, URINE AUTO 29 /HPF (0-3)
== END ==
LOC: M IRPRO 13:31
PROVIDERS: ATTEND Student in an Organized Health Care Education/Training Program
DX: C67.9 Malignant neoplasm of bladder, unspecified (principal)
CPT/HCPCS: 36561; 81001; 85027; C1887; J0688; J1642; J2250; J3010

== ENCOUNTER 2025-05-21 10:13 | Emergency (ER) | payer MEDICARE ==
[~2025-05-21] VITALS: Ht 170.2 cm; Wt 89.0 kg
[2025-05-21 11:56] LABS: PLATELET COUNT, AUTOMATED 343 10^3/uL (150-450)
[2025-05-21 12:20] LABS: CALCIUM LEVEL 8.8 MG/DL (8.3-10.6); CARBON DIOXIDE LEVEL 26.0 MMOL/L (20-31); CHLORIDE LEVEL 105.0 MMOL/L (98-107); CREATININE FOR GFR 1.11 MG/DL (0.70-1.30); GLOMERULAR FILTRATION RATE 71.9 (>49); POTASSIUM SERUM 4.5 MMOL/L (3.5-5.1); SODIUM LEVEL 140.0 MMOL/L (136-145)
[2025-05-21] MEDS ORDERED: ISOVUE-370 76% 100 ML VIAL As Ordered ONE (13:05)
[2025-05-21] MEDS ORDERED: LASI20TA3 PO (17:22)
[2025-05-21 17:28] VITALS: BP 136/72; TEMP 97; O2SAT 98
[2025-05-27] MEDS ORDERED: FURO20TA2 PO (07:56)
[2025-05-27] MEDS ORDERED: TAMS1CAP17 PO (07:56)
[2025-05-27] MEDS ORDERED: MULTTAB61 PO (14:00)
[2025-05-27] MEDS ORDERED: PROBCAP2 PO (14:00)
[2025-05-27] MEDS ORDERED: VITA100093 PO (14:00)
[2025-05-27] MEDS ORDERED: LEVO1TAB39 PO (14:00)
[2025-05-27] MEDS ORDERED: POTA99CA2 PO (14:00)
[2025-06-03] MEDS ORDERED: METO1TAB87 (10:31)
[2025-06-03] MEDS ORDERED: ONDA-84 PO (15:34)
[2025-06-03] MEDS ORDERED: OMEP1CAP73 PO (15:34)
[2025-06-03] MEDS ORDERED: COLA100C5 PO (15:34)
[2025-06-03] MEDS ORDERED: OXYC-517 PO (15:34)
== END 2025-05-21 17:29 | disposition home or self-care (01) ==
LOC: M ED 10:13
DX: N48.89 Other specified disorders of penis (principal); R59.0 Localized enlarged lymph nodes; C67.9 Malignant neoplasm of bladder, unspecified; I25.10 Atherosclerotic heart disease of native coronary artery without angina pectoris; I25.2 Old myocardial infarction; F17.200 Nicotine dependence, unspecified, uncomplicated; Z79.01 Long term (current) use of anticoagulants; Z79.899 Other long term (current) drug therapy
CPT/HCPCS: 36415; 74177; 76870; 80048; 85027; 99284; Q9967

== ENCOUNTER → 2025-06-06 | Outpatient (POV) | payer MEDICARE ==
[~2025-06-06] VITALS: Ht 193 cm; Wt 96.4 kg
[~2025-06-06] MED LIST changes: +COLA100C5 PO; +FURO20TA2 PO; +LASI20TA3 PO; +LEVO1TAB39 PO; +METO1TAB87; +MULTTAB61 PO; +OMEP1CAP73 PO; +ONDA-84 PO; +OXYC-517 PO; +POTA99CA2 PO; +VITA100093 PO
[2025-06-06 13:38] VITALS: BP 135/95; O2SAT 98
== END ==
LOC: M IRPOV 13:31
PROVIDERS: ATTEND Registered Nurse School
DX: Z45.2 Encounter for adjustment and management of vascular access device (principal); C67.9 Malignant neoplasm of bladder, unspecified; Z95.828 Presence of other vascular implants and grafts

== ENCOUNTER 2025-06-08 13:18 | Day surgery (SDC) | payer MEDICARE ==
[~2025-06-08] VITALS: Ht 193 cm; Wt 97.8 kg
[2025-06-08] MEDS ORDERED: LIDOCAINE 2% 100 MG/5 ML SDV (FOR ANES.) As Ordered ONE (14:57)
[2025-06-08] MEDS ORDERED: ESMOLOL 100 MG/10 ML VIAL As Ordered ONE (15:38)
[2025-06-08 15:56] VITALS: TEMP 98.1
[2025-06-08 17:08] VITALS: BP 132/90; O2SAT 98
== END 2025-06-08 17:40 | disposition home or self-care (01) ==
LOC: M OPP 13:18
PROVIDERS: ATTEND Surgery
DX: D12.3 Benign neoplasm of transverse colon (principal); K57.30 Diverticulosis of large intestine without perforation or abscess without bleeding; K62.89 Other specified diseases of anus and rectum; R93.3 Abnormal findings on diagnostic imaging of other parts of digestive tract; R19.4 Change in bowel habit; G47.33 Obstructive sleep apnea (adult) (pediatric); I48.91 Unspecified atrial fibrillation; Z95.5 Presence of coronary angioplasty implant and graft; Z79.01 Long term (current) use of anticoagulants; Z79.899 Other long term (current) drug therapy; F17.210 Nicotine dependence, cigarettes, uncomplicated
CPT/HCPCS: 45380; 45385; 88305; J1805

== ENCOUNTER → 2025-06-15 | Outpatient (CLI) | payer MEDICARE ==
[~2025-06-15] MED LIST changes: +PROHANCE 279.3MG/ML 15ML VIAL As Ordered ONE; +PROHANCE 279.3MG/ML 5ML VIAL As Ordered ONE
== END ==
LOC: M RAD 15:00
PROVIDERS: ATTEND Student in an Organized Health Care Education/Training Program
DX: C67.9 Malignant neoplasm of bladder, unspecified (principal); K62.9 Disease of anus and rectum, unspecified; K40.90 Unilateral inguinal hernia, without obstruction or gangrene, not specified as recurrent; N40.0 Benign prostatic hyperplasia without lower urinary tract symptoms; Z96.0 Presence of urogenital implants
CPT/HCPCS: 72197; A9576